=== PATIENT | female | born 1980 | race African-American/Black ===

== ENCOUNTER 2020-06-19 20:20 | Emergency (ER) | payer SELFPAY ==
[2020-06-19] MEDS ORDERED: Ondansetron ODT 4 MG TAB ONE (21:02)
--- NOTE | 2020-06-19 21:15 | RAD ---
Exam: Chest one view HISTORY:Cough. Comparison: None. FINDINGS: Cardiac silhouette: Normal Aorta: Unremarkable Pulmonary vessels: Normal Costophrenic angles: Clear LUNGS: No masses or consolidation. Pneumothorax: None Osseous abnormalities: None IMPRESSION: No acute cardiopulmonary process.
== END 2020-06-19 22:24 | disposition home or self-care (01) ==
LOC: MADERS 20:20
DX: T17.890A Other foreign object in other parts of respiratory tract causing asphyxiation, initial encounter (principal)
CPT/HCPCS: 71045; Q0162